=== PATIENT | female | born 1945 | race Caucasian/White ===

== ENCOUNTER 2020-10-03 12:34 | Inpatient (IN) | payer OTHER ==
[~2020-10-03] VITALS: Ht 157.5 cm; Wt 103.2 kg
--- NOTE | ~2020-10-03 | HC ---
[facility] [place] [place] [address] [place] [address] CONSULTATION Name: NEFTALI MAYER Room #: 349-I ADM IN ..#: [id number] Admission: 10/03/20 Attend Phys: Renée Salomon Discharge: Date of : 49 Report #: [id number] THIS REPORT FOR: cc: FAM - Family physician unknown FAM - Family physician unknown Jules Abraham MD ~ DATE OF SERVICE: 10/11/2020 HISTORY OF PRESENT ILLNESS: The patient is a 75-year-old female with obesity, diabetes mellitus type 2, hypertension, admitted with increasing shortness of breath 10 days after diagnosed with COVID. EMS noted Pulse oximetry in the 50s. Chest x-ray revealed bilateral pneumonia. She was diagnosed with COVID-19 pneumonia along with sepsis, ARDS, acute renal insufficiency, peripheral edema, moderate protein calorie malnutrition. She has been treated with IV antibiotics, given corticosteroids. She has been on Optiflow and I do not see that she warranted intubation and mechanical ventilation, but has continued on the Optiflow, currently on 45 liters per minute. She also has had BiPAP. She is currently in isolation for COVID and is in a negative pressure room. We are seeing her in rehabilitation medicine consultation. PAST MEDICAL HISTORY: Includes the obesity, hypertension, enteritis, diabetes mellitus type 2. MEDICATIONS: Please see the full medication listing. ALLERGIES: PENICILLIN. SOCIAL HISTORY: Lives in a town house alone. No stairs. Did not utilize gait aids. There is a daughter in the area, but the daughter is apparently going to [place] for the next couple of weeks with the patient's granddaughter for some type of dance activity. REVIEW OF SYSTEMS: No complaints of chest pain, currently short of breath with activity. No abdominal discomfort. PHYSICAL EXAMINATION: GENERAL: An obese 75-year-old female seen in the negative pressure room. She has full COVID precautions. Faces appeared symmetric. She is on the Optiflow functional range of motion of both upper extremities, strength is grade 4-/5. DTRs are trace to 1. Lower extremities, no focal calf swelling. She does have some distal lower extremity peripheral edema trace. She is probably 3+/5 strength of her lower extremities; sit to stand, standby assistance with gait, 50 feet min assist, no device. Continues on the high-flow oxygen. She is noted to be 5 feet 2 inches and weighs 170 pounds on admission. [address] [address] CONSULTATION Name: NEFTALI MAYER Room #: 349-I [facility] IN [facility]#: [id number] Admission: 10/03/20 Attend Phys: Renée Salomon Discharge: Date of : 49 Report #: [id number] ASSESSMENT: A 75-year-old white female with the following problems: 1. COVID-19 pneumonia. 2. Sepsis. 3. Acute respiratory distress syndrome. 4. Acute renal insufficiency. 5. Peripheral edema. 6. Moderate protein-calorie malnutrition. 7. Obesity. 8. Diabetes mellitus type 2. 9. Hypertension. 10. Enteritis. PLAN: Continuing on the Optiflow. She is tolerating basic therapies with PT and OT. We are being asked to assess regarding rehabilitation options. There is the possibility of patients undergoing inpatient rehabilitation on the COVID floor rather than transferring to the inpatient in-hospital rehabilitation don. This may certainly be a possibility for this patient to gradually improve her strength and endurance and continue with continuity of care for the multiple sap plant maintenance consultant physicians that are involved. The goals further goes to gradually improve her pulmonary condition while improving her overall functional independence with mobility and ADLs. Insurance precertification issues will be checked and we will be glad to follow along with you. By: [id number] Jules Abraham MD /nt
--- NOTE | ~2020-10-03 | EMS ---
[facility] [address] [place] [id number] EMS Patient Care Report Name: NEFTALI MAYER Room #: 356-P ADM IN M.R.#: [id number] Admission: 10/03/20 Attend Phys: Renée Salomon Discharge: Date of : 49 Report #: [id number] THIS REPORT FOR: //name// Report Transmitted: 10/05/2020 14:44 EMS Care Summary [place], [place]/[facility] Incident [id number] @ 10/03/2020 11:53 Incident Location [address] [place] [address] Patient NEFTALI MAYER Female, 75 Years 1945 Patient Address [address] [place] [address] Patient History Hypertension (HTN), Patient Allergies Penicillin allergy, Chief Complaint covid Disposition Transported No Lights/[place] [facility] Reason Breathing Problem Transported To [facility] Narrative pt found lying in bed c/o N/V and SOB. pt hands and fingers are "dusky" colored. she reports she tested positive 10 days ago. she has not been vaccinated. she has not gone to the Dr and has been feeling worse over the past few days. pt RA 02 sat is 51%. pt req eval at [facility]. pt placed on under a face mask. pt to stair chair and out to [facility], [place] as listed in flow chart. transport non emergency. pt 02 sat increased to 94%, no changes in pt [facility] [address] [place] [address] EMS Patient Care Report Name: NEFTALI MAYER Room #: 356-P [facility] IN ..#: [id number] Admission: 10/03/20 Attend Phys: Renée Salomon Discharge: Date of : 49 Report #: [id number] complaint. Initial Vitals @12:24P: 57,R: 20,BP: 133/69,SpO2: 94, @12:04R: 20,GCS: 15,SpO2: 51, @12:07P: 60,R: 20,BP: 134/79,Pain: 0/10,GCS: 15,Temp: 98F,SpO2: 60,Revised Trauma: 12, Assessments @12:03MENTAL:No Abnormalities,SKIN:Cold,HEENT:Head/Face: No Abnormalities,LUNG SOUNDS:General: Vomiting,General: Nausea,ABDOMEN:General: Vomiting,General: Nausea,PELVIS//GI:EXTREMITIES:PULSE:Radial: 2+ Normal,NEURO:Other,@12:24MENTAL:No Abnormalities,SKIN:Cold,HEENT:LUNG SOUNDS:ABDOMEN:PELVIS//GI:EXTREMITIES:PULSE:NEURO: Impression COVID-19 - Confirmed by testing Procedures @12:03ALS AssessmentResponse: UnchangedSucceeded@12:07Oxygen FlowRate: 6 Device: Nasal Cannula (NC) Response: ImprovedSucceeded@12:16Saline Lock 10cc (20 ga) Site: Hand-LeftResponse: UnchangedSucceeded@12:10StretcherResponse: Unchanged@12:08StairchairResponse: Unchanged@12:133-Lead ECGResponse: Unchanged Timeline 11:52,Call Received 11:52,Dispatch Notified 11:53,Dispatched 11:54,En Route 12:01,On Scene 12:03,At Patient 12:03,ALS Assessment,Response: UnchangedSucceeded, 12:04,BP: / M,PULSE: ,RR: 20 R,SPO2: 51 Ox,ETCO2: ,BG: ,PAIN: ,GCS: 15, 12:07,Oxygen FlowRate: 6 Device: Nasal Cannula (NC) Response: ImprovedSucceeded, 12:07,BP: 134/79 M,PULSE: 60,RR: 20 R,SPO2: 60 Ox,ETCO2: ,BG: ,PAIN: 0,GCS: 15, 12:08,Stairchair,Response: Unchanged 12:10,Stretcher,Response: Unchanged 12:13,3-Lead ECG,Response: Unchanged 12:16,Saline Lock 10cc 20 ga Site: Hand-Left,Response: UnchangedSucceeded, 12:19,Depart Scene 12:24,BP: 133/69 M,PULSE: 57,RR: 20 R,SPO2: 94 Ox,ETCO2: ,BG: ,PAIN: ,GCS: , 12:43,At Destination 12:54,Call Closed Disclaimer v1.1 Copyright 2020 [employer] [place] [address] EMS Patient Care Report Name: LEYLANEFTALI Room #: 356-P ADM IN M.R.#: [id number] Admission: 10/03/20 Attend Phys: Renée Salomon Discharge: Date of : 49 Report #: [id number] This EMS Care Summary contains data elements from the applicable legal record (which may be displayed differently). It is designed to provide pertinent information for the following purposes: continuity of care, clinical quality, and state data reporting. The complete legal record is available to ED staff and administrators of the receiving hospital in [facility]'s Patient Tracker. All data is provided "as is."
[2020-10-03 12:39] VITALS: BP 136/73
--- NOTE | 2020-10-03 12:55 | NUR ---
EVELIN MAYER (DAUGHTER) PHONE: [phone]
[2020-10-03] MEDS ORDERED: LISINOPRIL-HCT1 EAC1 PO (12:57)
[2020-10-03] MEDS ORDERED: CELEXA 20 MG TA20 MG PO (12:58)
[2020-10-03 13:24] LABS: BE(vivo) 1.6 mmol/L (-2 to +3); PCO2 35.5 mmHg (35.0-45.0); PO2 81.9 mmHg (80.0-100.0); pH 7.465 (7.360-7.450); sO2 96.7 % (92.0-98.0)
[2020-10-03 13:30] LABS: HEMATOCRIT 41.4 % (37.0-47.0); HEMOGLOBIN 14.2 gm/dL (12.0-15.0); MCH 30.2 pg (26.0-34.0); MCHC 34.2 g/dL (28.0-37.0); MCV 88.5 fL (80.0-100.0); PLATELET COUNT 263 thou/uL (150-400); RBC 4.68 mil/uL (4.20-5.00); RDW 13.6 % (10.5-14.5); WBC 7.8 thou/uL (4.0-11.0)
[2020-10-03 13:34] LABS: CALCIUM 8.1 mg/dL (8.5-10.1); CREATININE 1.9 mg/dL (0.6-1.0); POTASSIUM 3.3 mmol/L (3.5-5.1)
[2020-10-03 13:43] LABS: ALBUMIN 2.9 g/dL (3.4-5.0); TOTAL BILIRUBIN 0.7 mg/dL (0.2-1.0); TOTAL PROTEIN 6.9 g/dL (6.4-8.2); TROPONIN-I 0.06 ng/mL (<0.06)
[2020-10-03 14:13] VITALS: BP 116/57
[2020-10-03 15:00] VITALS: BP 109/61
[2020-10-03 16:01] VITALS: BP 141/69
[2020-10-03 17:42] LABS: ABSOLUTE NEUTROPHILS 6.9 thou/uL (1.4-8.2); ATYPICAL LYMPHS 1 %; METAMYELOCYTES 1 %
--- NOTE | 2020-10-03 19:29 | NUR ---
PT ADMITTED FROM ER FOR HYPOXIA AND PNEUMONIA DUE TO COVID VIRUS AT 1600PM, PT IS A&OX3 ( PERSON, PLACE AND TIME), PT'S VS ARE STABLE, ID HAS CONSULT, PT STARTS MEDICATIONS TO TREAT COVID, RN HAS REPORTED TO NEXT SHIFT , PT IS VERY WAEK AND SHE NEEDS TO HELP BSC. PT IS ON O2 6L/MIN/NC TO KEEP O2 92-94%,
[2020-10-03 19:41] VITALS: BP 129/69
[2020-10-04 03:49] VITALS: BP 138/62
--- NOTE | 2020-10-04 04:51 | NUR ---
PROGRESS PT A/O X4 , UP WITH SBA GAIT UNSTEADY PT REPORTS WEAKNESS. UP TO BSC VOIDING SMALL AMOUNTS AT A TIME. LUNGS DIMINISHED AND PT DENIES COUGH. PT ON 6 LITERS AT START OF SHIFT BUT COULDN'T KEEP O2 SATS UP rt INCREASED TO 13 LITERS O2 VIA HIGH FLOW CANNULA SATS AT 93 TO 98%. ORDER FOR OPTIFLOW PRN AND NON REBREATHER PLACED AT BEDSIDE TO USE WITH ACTIVITY. PT DENIES SOB AFTER O2 INCREASE. REPORTED GENERALIZED PAIN AND A HYDROCODONE GIVEN PT NAUSEOUS AFTER AND 4 MG ZOFRAN GIVEN WITH EFFECT. PT DENIED PAIN THE REMAINDER OF SHIFT.ACCUCHECKS CONTINUE 167 AT HS. CONTINUE POC.
[2020-10-04 06:01] LABS: HEMATOCRIT 40.9 % (37.0-47.0); HEMOGLOBIN 13.9 gm/dL (12.0-15.0); MCH 30.4 pg (26.0-34.0); MCV 89.5 fL (80.0-100.0); RBC 4.57 mil/uL (4.20-5.00); RDW 13.2 % (10.5-14.5); WBC 8.5 thou/uL (4.0-11.0)
[2020-10-04 06:09] LABS: ANION GAP 9 mmol/L (7-16); BUN 76 mg/dL (7-18); CALCIUM 8.9 mg/dL (8.5-10.1); CHLORIDE 102 mmol/L (98-107); CO2 32 mmol/L (21-32); CREATININE 1.8 mg/dL (0.6-1.0); GLUCOSE 139 mg/dL (74-106); POTASSIUM 3.7 mmol/L (3.5-5.1); SODIUM 143 mmol/L (136-145)
[2020-10-04 06:17] LABS: ALBUMIN 2.7 g/dL (3.4-5.0); PHOSPHORUS 2.4 mg/dL (2.6-4.7); TROPONIN-I <0.06 ng/mL (<0.06)
--- NOTE | 2020-10-04 07:50 | EKG ---
[facility] [employer] [place] [address] ELECTROCARDIOGRAM REPORT Name: NEFTALI MAYER Room #: 356- ADM IN M.R.#: [id number] Admission: 10/03/20 Attend Phys: Renée Salomon Discharge: Date of : 49 Report #: [id number] [facility] ED Test Date: 2020-10-03 Test Time: 12:57:47 Pat Name: NEFTALI MAYER Department: Room: 356 Gender: F Hematology Specialist: delbert : 1945 Requested By: Jules Puckett Order Number: [id number] MD: Cornelio Juarez Measurements Intervals [place] Rate: 59 P: -3 GA: 144 QRS: 38 QRSD: 118 T: 9 QT: 494 QTc: 490 Interpretive Statements Sinus rhythm Incomplete right bundle branch block Low voltage, precordial leads Baseline wander in lead(s) V4 No previous ECG available for comparison Electronically Signed On 10-04-2020 7:49:58 CDT by Cornelio Juarez [email or web address] <ELECTRONICALLY SIGNED> By: Cornelio Juarez MD, [facility] 10/04/20 0749 [id number] Cornelio Juarez MD, FACC /EPI
[2020-10-04 08:39] VITALS: BP 139/65
--- NOTE | 2020-10-04 10:04 | NUR ---
RN CALLED AND TALKED TO PT'S DAUGHTER EVELIN AND GAVE PT UPDATE. RN UPDATED INCREASED O2 NEED. DAUGHTER ASKED QUESTIONS ABOUT PT'S HOME MEDS FOR ANTIDEPRESSANT AND HTN. THOSE MEDS ARE ON PT'S HOME MED LIST BUT HAVE NOT YET BEEN RESTARTED. QUESTIONS ASKED AND ANSWERED.
[2020-10-04 11:03] LABS: URINE BILIRUBIN NEGATIVE (Negative); URINE BLOOD NEGATIVE (Negative); URINE CLARITY CLEAR; URINE COLOR YELLOW; URINE GLUCOSE-RANDOM* NEGATIVE (Negative); URINE KETONES NEGATIVE (Negative); URINE LEUKOCYTES-REFLEX NEGATIVE (Negative); URINE NITRITE-REFLEX NEGATIVE (Negative); URINE PROTEIN (DIPSTICK) NEGATIVE (Negative); URINE UROBILINOGEN 0.2 E.U./dl (0.2-1.0)
--- NOTE | 2020-10-04 16:15 | NUR ---
INITIAL ASSESSMENT: Received consult. SW reviewed chart and spoke with nursing and attending physician. Pt was admitted from home due to COVID pneumonia/hypoxia. Pt placed in Enhanced Isolation. Pt had tested positive for COVID about 10 days prior to admission. Pt is currently afebrile. Pt on 13L of O2 this morning and is now requiring optiflow. Pt is on IV abx, IV steroids and IV lasix. SW placed call to pt's room. No answer. Per chart, pt has been alert/orientated. Pt lives at home. Pt's dtr has been updated by nursing. SW to follow up with pt and/or family to obtain assessment info and discuss discharge planning.
[2020-10-04 16:41] VITALS: BP 155/81
--- NOTE | 2020-10-04 19:11 | NUR ---
PT AT BEGINNING OF SHIFT WAS ON 13L HIGH FLOW NC AND RT INCREASED HIM TO 15L HIGH FLOW NC. WHEN RN WAS DOING ASSESSMENT PT'S O2 SAT WAS 88%. RT WAS NOTIFIED AND PT WAS SWITCHED FROM HIGH FLOW NC TO OPTIFLOW AT 80% FIO2, 50L. PT HAS REMAINED >92% THE REMAINDER OF THIS SHIFT. PT DID NOT HAVE APPETITE FOR BREAKFAST OR LUNCH BUT DID EAT SOME PEARS FOR DINNER AND STATED THAT IS THE FIRST TIME IN SEVERAL DAYS THAT SHE WAS NOT NAUSEATED WHEN EATING. PT C/O HEADACHE AND NECK PAIN AND WAS GIVEN PO PAIN MEDICATIONS WITH COMPLETE RELIEF.
[2020-10-05 03:38] VITALS: BP 152/84
--- NOTE | 2020-10-05 07:28 | HC ---
[facility] [address] [place] [address] CONSULTATION Name: NEFTALI MAYER Room #: 356-P [facility] IN ..#: [id number] Admission: 10/03/20 Attend Phys: Renée Salomon Discharge: Date of : 49 Report #: [id number] THIS REPORT FOR: cc: FAM - Family physician unknown FAM - Family physician unknown Jose Menendez MD ~ DATE OF SERVICE: 10/03/2020 INFECTIOUS DISEASE CONSULTATION ATTENDING PHYSICIAN: Dr. Salomon. REASON FOR CONSULTATION: COVID pneumonitis, complicated by respiratory failure. HISTORY OF PRESENT ILLNESS: Chart reviewed and the patient examined. A 75-year-old with history of hypertension and depression, who was admitted through Emergency Room with complaints of progressive illness. She has been ill for roughly 10 days. She is aware of exposure history, perhaps 2 weeks ago developed fevers some of which high-grade initially, associated muscle aches and joint pains, did have GI-related complaints with diarrhea, nausea, over the course of last few days has progressive dyspnea, really persistent cough, more typically intermittent. On evaluation was found to be hypoxemic, requiring supplemental oxygen 6 L per nasal cannula, baseline saturations in the mid to low 90s and a borderline elevated lactic acid of 2.1. Chest x-ray with bilateral infiltrates consistent with multifocal pneumonitis. Empirically started on levofloxacin, corticosteroids. ALLERGIES: PENICILLIN, she describes as a young child, does not remember details. CURRENT MEDICATIONS: Include levofloxacin, dexamethasone, furosemide, apixaban, insulin, hydrocodone, zolpidem, ondansetron as needed. PAST MEDICAL HISTORY: Hypertension, depression. SOCIAL HISTORY: Nonsmoker. No ethanol. No illicit drug use. FAMILY HISTORY: Noncontributory. REVIEW OF SYSTEMS: Otherwise, unremarkable 10-point review of systems. PHYSICAL EXAMINATION: GENERAL: She is in moderate distress. She is generally lucid, somewhat chronically ill appearing. VITAL SIGNS: Temperature 98.5, pulse 56, respirations 18, blood pressure 141/69. [facility] [address] [place] [address] CONSULTATION Name: NEFTALI MAYER Room #: [address] [place] [address] [place] ..#: [id number] Admission: 10/03/20 Attend Phys: Renée Salomon Discharge: Date of : 49 Report #: [id number] SKIN: Warm, dry. HEENT: Normocephalic. Extraocular muscles intact. NECK: Supple. LUNGS: Scattered coarse breath sounds. HEART: Regular, borderline bradycardic. I do not appreciate a murmur. ABDOMEN: Mildly distended, otherwise soft, nontender. EXTREMITIES: No cyanosis. GENITOURINARY AND RECTAL: Deferred. LABORATORY DATA: Glucose initially 144, repeat 167. ProBNP of 596. Electrolytes: Sodium 143, potassium 3.3, chloride 101, bicarbonate 20, anion gap of 14. BUN and creatinine 76 and 1.9. Estimated GFR of 26. Albumin 2.9, total protein 6.9. LFTs only remarkable for AST of 67. Coronavirus testing positive. CBC: White count of 7.8, H and H 14.2 and 41.4, platelets of 263. ABGs: pH 7.465, pCO2 of 35.5, pO2 of 81.9 on 6 L. Chest x-ray as described above. ASSESSMENT: 1. COVID-19 infection, complicated by pneumonitis and respiratory failure, perhaps with acute respiratory distress syndrome. 2. Hypertension. 3. Depression. PLAN: We will plan on continuing empiric therapy with antibacterial far enough that may well have secondary bacterial pneumonitis. Given her marginal renal functions and the 10-day history, we will hold off on remdesivir at this point. Continue corticosteroids and vitamins, try monoclonal antibody IL6. She remains quite tenuous at this point. Continue oxygen therapy as required, wean off as able. I would be concerned about clinical deterioration of this patient. <ELECTRONICALLY SIGNED> By: Jose Menendez MD 10/05/20 0728 [id number] [id number] Jose Menendez MD /nt
[2020-10-05 07:48] VITALS: BP 139/87
[2020-10-05 11:36] LABS: CREATININE 1.5 mg/dL (0.6-1.0); POTASSIUM 3.7 mmol/L (3.5-5.1)
--- NOTE | 2020-10-05 14:23 | NUR ---
TITO reviewed chart and spoke with nursing and attending physician. Pt remains in Enhanced Isolation due to COVID. Pt is afebrile and requiring optiflow. Pt is on IV abx, IV steroids and IV lasix. Pt started course of Remdesivir today. TITO placed call to pt's room. No answer. Pt able to talk by phone. TITO will continue to attempt to contact pt to obtain info for assessment and discharge planning. TITO is following to assist as needed with discharge planning.
[2020-10-05 15:51] VITALS: BP 152/79
[2020-10-05 19:32] VITALS: BP 147/84
[2020-10-06 00:23] VITALS: BP 143/89
[2020-10-06 04:55] VITALS: BP 131/63
--- NOTE | 2020-10-06 05:14 | NUR ---
PROGRESS PT A/O X4. UP WITH CONTACT GUARD ASSIST PT WEAK AND UNSTEADY. REPORTS HEADACHE AT A RATE OF 3 TO 5 TOOK HYDROCODONE WITH EFFECT. LUNGS DIMINISHED AND PT BREATHING SHALLOW. USING ISP UP TO 750 TO 800 ML'S INDEPENDENTLY. VOIDING SMALL AMOUNTS OF CLEAR YELLOW FOUL SMELLING URINE AT A TIME. TELEMETRY READING SR/SA WITH A RBBB. CONTINUE TO MONITOR.
[2020-10-06 06:09] LABS: ALBUMIN 2.7 g/dL (3.4-5.0); CALCIUM 8.8 mg/dL (8.5-10.1); CREATININE 1.1 mg/dL (0.6-1.0); DIRECT BILIRUBIN 0.2 mg/dL (<0.1-0.2); PHOSPHORUS 2.1 mg/dL (2.5-4.9); POTASSIUM 3.2 mmol/L (3.5-5.1); TOTAL BILIRUBIN 0.7 mg/dL (0.2-1.0); TOTAL PROTEIN 6.3 g/dL (6.4-8.2)
[2020-10-06 08:17] VITALS: BP 154/86
--- NOTE | 2020-10-06 15:07 | NUR ---
TITO reviewed chart and spoke with nursing and attending physician. Pt remains in Enhanced Isolation due to COVID. Pt with low grade fever today. Pt is requiring optiflow. Pt is on IV abx, IV steroids, IV lasix and completing course of Remdesivir. TITO placed call to pt's room. No answer. TITO left voice message on pt's cell phone to request call back to discuss discharge planning. TITO is following to assist as needed with discharge planning.
[2020-10-06 16:52] VITALS: BP 132/78
--- NOTE | 2020-10-06 18:43 | NUR ---
PT DAUGHTER UPDATED BY THIS RN DURING AFTERNOON. PT CONTINUES TO HAVE LOW ENERGY, POOR APPETITE. IS COMPLIANT WITH OPTIFLOW AND CALLING FOR STANDY BY ASSIST
[2020-10-06 20:05] VITALS: BP 150/88
--- NOTE | 2020-10-07 00:49 | NUR ---
ASSUMED CARE OF PATIENT AT 1900. REMAINS ON OPTIFLOW. STATES SHE IS GETTING MORE AND MORE TIRED. ENCOURAGED HER TO REST, CALL FOR ANY ASSISTANCE. NOT PROGRESSING TOWARDS POC GOALS AT THIS TIME.
[2020-10-07 03:27] LABS: HEMATOCRIT 40.2 % (37.0-47.0); HEMOGLOBIN 13.8 gm/dL (12.0-15.0); MCH 30.4 pg (26.0-34.0); MCHC 34.3 g/dL (28.0-37.0); MCV 88.7 fL (80.0-100.0); PLATELET COUNT 245 thou/uL (150-400); RBC 4.53 mil/uL (4.20-5.00); RDW 13.4 % (10.5-14.5); WBC 10.9 thou/uL (4.0-11.0)
[2020-10-07 03:47] LABS: ALBUMIN 2.8 g/dL (3.4-5.0); CALCIUM 8.6 mg/dL (8.5-10.1); DIRECT BILIRUBIN 0.3 mg/dL (<0.1-0.2); PHOSPHORUS 2.5 mg/dL (2.5-4.9); TOTAL BILIRUBIN 0.7 mg/dL (0.2-1.0); TOTAL PROTEIN 6.1 g/dL (6.4-8.2)
[2020-10-07 03:50] VITALS: BP 139/80
[2020-10-07 06:48] LABS: PLATELET ESTIMATE NORMAL
[2020-10-07 08:01] VITALS: BP 115/69
[2020-10-07 09:31] LABS: BE(vivo) 4.2 mmol/L (-2 to +3); HCO3 28.7 mmol/L (22.0-26.0); PCO2 42.4 mmHg (35.0-45.0); PO2 87.3 mmHg (80.0-100.0); pH 7.448 (7.360-7.450)
[2020-10-07 14:58] VITALS: BP 129/78
--- NOTE | 2020-10-07 15:01 | NUR ---
TITO reviewed chart and spoke with nursing and attending physician. Pt remains in Enhanced Isolation due to COVID. Pt is afebrile and requiring optiflow. Pt remains on IV meds and Remdesivir. PT/OT ordered today to evaluate pt for discharge needs. TITO placed call to pt's room. No answer. TITO is following to assist as needed with discharge planning.
--- NOTE | 2020-10-07 17:21 | NUR ---
NO ACUTE CHANGES WITH ASSESSMENTS THIS SHIFT. RT TITRATING O2 DOWN TOLERATED. PATIENT WORK WITH PT AND OT THIS SHIFT, TOLERATED WELL. PT VOIDED PER BSC.
[2020-10-07 20:13] VITALS: BP 124/68
--- NOTE | 2020-10-07 22:21 | NUR ---
PT RESTING IN BED. OPTI FLOW 45L, 63%. PT HAS SAD AFFECT, WHINY SPEECH, ASKING FOR CONFIRATION THAT SHE IS OK. SITTING IN THE DARK. FLUSHED SKIN TONE. LUNGS DIMINISHED. BLE EDEMA. PT STEADY WITH TRANSFERS, USING BSC, HAD ONE TIME DOSE LASIX THIS EVENING. PT BEING MOVED TO NEGATIVE PRESSURE ROOM PER PULMONARY DR REQUEST FOR AEROSOL TREATMENTS. PT ASKS FOR FLUIDS OFTEN. PT TALKED ABOUT HER DAUGHTER GOING TO [facility].
[2020-10-08 04:00] VITALS: BP 120/66
[2020-10-08 06:01] LABS: ALBUMIN 2.9 g/dL (3.4-5.0); CALCIUM 8.8 mg/dL (8.5-10.1); DIRECT BILIRUBIN 0.3 mg/dL (<0.1-0.2); PHOSPHORUS 2.9 mg/dL (2.5-4.9); POTASSIUM 3.9 mmol/L (3.5-5.1); TOTAL BILIRUBIN 0.8 mg/dL (0.2-1.0); TOTAL PROTEIN 6.1 g/dL (6.4-8.2)
[2020-10-08 07:55] VITALS: BP 135/69
[2020-10-08 11:38] VITALS: BP 134/64
--- NOTE | 2020-10-08 14:52 | NUR ---
TITO reviewed chart and spoke with nursing and attending physician. Pt remains in Enhanced Isolation due to COVID. Pt was moved to the negative pressure room. Pt is afebrile and requiring optiflow. Pt is on IV meds and Remdesivir. Therapy has been able to work with pt. Recommendation made for pt to be evaluated for acute rehab. Pt was independent prior to admission. No weekend discharge planned. TITO placed several calls to pt's room. No answer. TITO will follow up with pt or family on Sunday. TITO is following to assist as needed with discharge planning.
[2020-10-08 16:35] VITALS: BP 135/78
[2020-10-08 19:46] VITALS: BP 130/67
--- NOTE | 2020-10-08 21:42 | NUR ---
PT RESTING IN BED. O2 OPTI MAURICE. PT REPORTS FEELING TIRED. PT USING BSC. SAD AFFECT. SITTING IN THE DARK. PT REDIRECTED TO DRINK WATER AND NOT MORE JUICE OR FRUIT, PT IS DIABETIC. STEADY GAIT. FLUSHED SKIN. LUNGS COARSE.
[2020-10-09 02:39] VITALS: BP 142/74
[2020-10-09 05:59] LABS: ALBUMIN 2.7 g/dL (3.4-5.0); CALCIUM 8.5 mg/dL (8.5-10.1); CREATININE 0.8 mg/dL (0.6-1.0); DIRECT BILIRUBIN 0.2 mg/dL (<0.1-0.2); PHOSPHORUS 2.8 mg/dL (2.5-4.9); POTASSIUM 4.3 mmol/L (3.5-5.1); TOTAL BILIRUBIN 0.9 mg/dL (0.2-1.0); TOTAL PROTEIN 5.6 g/dL (6.4-8.2)
[2020-10-09 07:18] VITALS: BP 142/71
--- NOTE | 2020-10-09 13:07 | NUR ---
CARE ASSUMED THIS AM, PT ALERT AND ORIENTED X4, DENIES CHEST PAIN, NAUSEA AND VOMITTING. CONTINUE TO BE ON OPTI FLOW 45L, SOB WITH EXERTION. UP TO BSC. SLOWLY PROGRESSING TOWARDS CARE. DENIES ANY NEEDS MARTINEZ. WILL CONTINUE TO MONITOR
[2020-10-09 15:06] VITALS: BP 136/68
[2020-10-09 21:33] VITALS: BP 133/71
[2020-10-10 05:01] VITALS: BP 128/65
--- NOTE | 2020-10-10 06:36 | NUR ---
PT UP TO BSC WITH X1 ASSIST. PT STILL DESATS QUICKLY WHEN NASAL CANNULA OUT, TIGHTENED UP HEAD STRAP SEEMS TO KEEP IT IN THERE BETTER. FOLLOW POC WITH IVPB ANTIBIOTICS. CALL LIGHT WITHIN REACH.
[2020-10-10 08:10] VITALS: BP 131/76
--- NOTE | 2020-10-10 12:48 | NUR ---
CARE ASSUMED THIS AM, LERT AND ORIENTED X4, DENIES CHEST PAIN, NAUSEA AND VOMITTING. CONTINUE TO BE ON OPTIFLO, 45-40L, SOB WITH EXERTION. PT STATED FEELING BETTER. UP TO BSC INDEPENDENTLY. PT DAUGHTER CALLED AND UPDATED ABOUT PT CARE. PT MOSTLY SITS UP IN BED. PT ENCIURAGED TO USED IS DURING THE DAY. DENIES ANY NEEDS MARTINEZ, CONTINUE TO MONITOR
[2020-10-10 16:34] VITALS: BP 122/69
--- NOTE | 2020-10-10 16:35 | NUR ---
ASSUMED CARE OF PATIENT AT 0600. AT THIS TIME SHE WAS ON 50LPM AND 65% FIO2. DURING THE COURSE OF THE DAY I WAS ABLE TO WEAN THE PATIENT DOWN TO 40LPM AND 55% FIO2. HER SATURATION WAS 95% ON THESE SETTINGS.
[2020-10-10 19:30] VITALS: BP 129/70
[2020-10-11 03:45] VITALS: BP 124/63
--- NOTE | 2020-10-11 06:27 | NUR ---
VSS OVERNIGHT. FOLLOWING POC WITH IV ANTIBIOTICS. PT ASKED FOR TYLENOL AT 0400 FOR A HEADACHE. ISOLATION PRECAUTIONS IN PLACE.
[2020-10-11 07:06] LABS: ALBUMIN 2.6 g/dL (3.4-5.0); CALCIUM 8.4 mg/dL (8.5-10.1); CREATININE 0.9 mg/dL (0.6-1.0); DIRECT BILIRUBIN 0.3 mg/dL (<0.1-0.2); PHOSPHORUS 3.3 mg/dL (2.6-4.7); POTASSIUM 4.2 mmol/L (3.5-5.1); TOTAL BILIRUBIN 0.9 mg/dL (0.2-1.0); TOTAL PROTEIN 5.1 g/dL (6.4-8.2)
[2020-10-11 07:20] VITALS: BP 136/70
[2020-10-11 08:56] LABS: BASOPHILS 0.2 % (0.0-2.0); MCH 30.6 pg (26.0-34.0)
[2020-10-11 08:58] LABS: ABSOLUTE NEUTROPHILS 10.6 thou/uL (1.4-8.2); EOSINOPHILS 0.8 % (0.0-3.0); HEMATOCRIT 39.4 % (37.0-47.0); HEMOGLOBIN 13.5 gm/dL (12.0-15.0); LYMPHOCYTES 7.7 % (24.0-44.0); MCHC 34.1 g/dL (28.0-37.0); MCV 89.7 fL (80.0-100.0); PLATELET COUNT 197 thou/uL (150-400); POLYS 85.3 % (36.0-66.0); RBC 4.39 mil/uL (4.20-5.00); RDW 13.2 % (10.5-14.5); WBC 12.4 thou/uL (4.0-11.0)
--- NOTE | 2020-10-11 09:17 | NUR ---
Nutrition: pt admitted with COVID+ status, on Optiflo. Attempted phone call to pt room with no answer. Admit weight 179#, current 232#, suspect error. On vitamin pack, lasmuna, SSI. Hx DM. BG 115-213 on regular diet. Will add carb controlled to diet order. Currently eating 50-75% of meals, fair. Place as low nutrition risk.
[2020-10-11 15:19] VITALS: BP 139/72
--- NOTE | 2020-10-11 15:48 | NUR ---
TITO reviewed chart and spoke with nursing and attending physician. Pt remains in Enhanced Isolation due to COVID. Pt is afebrile and requiring optiflow. Pt is on IV meds and Remdesivir. Therapy is working with pt. [facility] consult ordered to evaluate pt for admission to in acute rehab. Will need insurance auth. TITO placed call to pt's room. No answer. TITO asked nursing to call SW when in pt's room, in order to discuss discharge plan. TITO is following to assist as needed with discharge planning.
--- NOTE | 2020-10-11 18:10 | NUR ---
assumed care of pt at 0700. pt aox4 no acute distress. remains on optiflow @ 40L. doing well with therapies. calls out appropriately. diuresing well. isolation precautions in place. rehab physician consulted. nisha.
[2020-10-11 20:30] VITALS: BP 144/84
[2020-10-12 05:19] VITALS: BP 139/88
[2020-10-12 07:07] VITALS: BP 121/67
--- NOTE | 2020-10-12 07:20 | NUR ---
PT MAKING SLOW PROGRESS TOWARD GOAL. ON OPTIFLO WITH 40 LITERS AT 60% FI02. LUNGS DIMISHED THROUGHOUT. OCCASIONAL HARSH COUGH WITHOUT ANY SPUTUM PRODUCED.
[2020-10-12 07:40] LABS: HEMATOCRIT 39.1 % (37.0-47.0); HEMOGLOBIN 13.4 gm/dL (12.0-15.0); MCH 30.9 pg (26.0-34.0); MCHC 34.3 g/dL (28.0-37.0); MCV 89.9 fL (80.0-100.0); RBC 4.35 mil/uL (4.20-5.00); RDW 13.4 % (10.5-14.5); WBC 12.8 thou/uL (4.0-11.0)
[2020-10-12 08:03] LABS: ALBUMIN 2.6 g/dL (3.4-5.0); CALCIUM 8.3 mg/dL (8.5-10.1); CREATININE 0.8 mg/dL (0.6-1.0); DIRECT BILIRUBIN 0.3 mg/dL (<0.1-0.2); PHOSPHORUS 2.7 mg/dL (2.5-4.9); TOTAL BILIRUBIN 1.1 mg/dL (0.2-1.0); TOTAL PROTEIN 5.4 g/dL (6.4-8.2)
--- NOTE | 2020-10-12 10:49 | NUR ---
CARE ASSUMED THIS AM, PT ALERT AND ORIENTED X4, DENIES ANY CHEST PAIN, NAUSEA AND VOMITTING. CONTINUE TO BE ON OPTIFLOW, 40L. UP TO BSC. PT COMPLAINED OF HEADACHE, PT STATED SHE FELL AND HIT HER HEAD 2 WEEKS AGO BEFORE GETTING ADMITTED. WILL UPDATE DR. ROONEY ON THAT INFO. DNEIES ANY NEEDS MARTINEZ. WILL CONTINUE TO MONITOR.
--- NOTE | 2020-10-12 12:15 | NUR ---
PATIENT SEEN BY AND PATIENT IS A CANDIDATE FOR ACUTE REHAB. AUTHORIZATION NEEDED FROM INSURANCE FOR ACUTE REHAB STAY. [employer] CONTACTED THIS DATE AND AUTHORIZATION REQUESTED. IF AUTHORIZATION RECEIVED, PATIENT WILL ADMIT TO REHAB SERVICES, BUT WILL REMAIN ON 3W UNTIL NO LONGER CONTAGIOUS.
[2020-10-12 15:03] VITALS: BP 122/61
--- NOTE | 2020-10-12 16:13 | NUR ---
TITO reviewed chart and spoke with nursing and attending physician. Pt remains in Enhanced Isolation due to COVID. Pt is afebrile and requiring optiflow. Pt is on IV abx, IV steroids and IV Lasix. Pt is completing course of Remdesivir. [facility] is able to accept pt pending insurance authorization. Auth submitted today. TITO placed call to pt's room. No answer. TITO spoke with pt's dtr, Saira, via phone to provide update and discuss rehab prior to returning home. Saira is agreeable with plan and asks TITO to call her back at a later time. TITO will follow up with Saira and discuss discharge planning.
[2020-10-12 19:57] VITALS: BP 142/75
--- NOTE | 2020-10-13 03:33 | NUR ---
continues on the optiflo at 50% fio2. she has been able to rest tonight. she was very tired at shift change. she complained of some puritic areas on her buttock and rt arm. applied some lotion and this alleviated the discomfort. up to bsc with steady gait. no discharge needs voiced.
[2020-10-13 05:58] VITALS: BP 103/71
[2020-10-13 07:12] VITALS: BP 122/65
[2020-10-13 07:15] LABS: ALBUMIN 2.7 g/dL (3.4-5.0); CALCIUM 8.5 mg/dL (8.5-10.1); CREATININE 0.8 mg/dL (0.6-1.0); DIRECT BILIRUBIN 0.3 mg/dL (<0.1-0.2); PHOSPHORUS 2.9 mg/dL (2.6-4.7); POTASSIUM 4.3 mmol/L (3.5-5.1); TOTAL PROTEIN 5.4 g/dL (6.4-8.2)
--- NOTE | 2020-10-13 09:06 | NUR ---
CALL RECEIVED FROM PATIENT'S INSURANCE, [facility], ON 10/13/20 AFTER 4:30 PM. AUTHORIZATION FOR ACUTE REHAB STAY HAS BEEN DENIED. REASON FOR DENIAL IS THAT PATIENT IS NOT MEDICALLY READY FOR ACUTE REHAB AND NEEDS TO STAY IN ACUTE HOSPITAL. PEER TO PEER OFFERED AND MUST BE COMPLETED BY OCTOBER 18. PEER TO PEER NUMBER . A RECONSIDERATION CAN BE REQUESTED PRIOR TO OCTOBER 18, BUT IF THIS IS REQUESTED, IT WILL VOID OPPORTUNITY FOR PEER TO PEER. AFTER OCTOBER 18 NEW AUTHORIZATION REQUEST CAN BE MADE. ACUTE REHAB WILL CONTINUE TO FOLLOW.
--- NOTE | 2020-10-13 13:20 | NUR ---
Assumed care of pt this am. Pt A&O x4. Still on Optiflow 40L, 50% FiO2. Receiving Cefepime and Remdesevir. Denies any chest pain. Pt napping throughout the day. Fall precautions in place. Enchanced precautions in place. Will continue to monitor.
[2020-10-13 15:14] VITALS: BP 119/71
--- NOTE | 2020-10-13 16:10 | NUR ---
ITTO reviewed chart and spoke with nursing and attending physician. Pt remains in Enhanced Isolation due to COVID. Pt is afebrile and requiring optiflow. PT is on IV abx, IV steroids and IV lasix. Pt on Remdesivir. Discussed case with [facility] liaison. Insurance denied admission to in acute rehab due to current medical status. Per insurance, pt is not stable for acute rehab at this time. Option for peer to peer provided. Discussed with attending physician. Pt's O2 requirements need to be at 10L or less prior for [facility] to be able to accept pt. Insurance auth will be needed as well. TITO placed call to pt's room. No answer. TITO spoke with pt's dtr, Saira, to provide update. Saira verbalized understanding and is agreeable with plan for pt to have rehab prior to returning home. TITO is following to assist as needed with discharge planning.
[2020-10-13 19:30] VITALS: BP 144/70
[2020-10-14 03:45] VITALS: BP 123/60
[2020-10-14 07:10] VITALS: BP 123/92
--- NOTE | 2020-10-14 07:15 | NUR ---
PT WAS TITRATED DOWN OFF OPTIFLOW TO 8L VIA NASAL CANULA. 02 SATURATION WAS AT 97% OVERNIGHT. GAVE X1 PAIN MEDICATION. PT UP TO BSC WITH SBA. PT STATES SHE IS FEELING BETTER NOW. ISOLATION PRECAUTIONS IN PLACE.
[2020-10-14 15:10] VITALS: BP 141/82
--- NOTE | 2020-10-14 15:54 | NUR ---
TITO reviewed chart and spoke with nursing and attending physician. Pt remains in Enhanced Isolation due to COVID. Pt is afebrile and on 8L of O2. Pt remains on IV meds. TITO discussed case with [facility] vocational rehabilitation specialist, who states pt appears to be too high level for admission to inpt acute rehab. Recommendation made for pt to consider Home with HH. TITO placed call to pt's room. No answer. Will discuss Home with HH v. SNF placement. Some SNFs will accept pt's 10 days post COVID positive test date. TITO is following to assist as needed with discharge planning.
--- NOTE | 2020-10-14 17:26 | NUR ---
assumed care of pt at 0700. pt aox4 no acute distress. doing well on 8L NC. independent to BSC. diuresing well. ivf infusing per order. good appetite. calls appropriately. no events on telemetry. isolation precautions in place.
[2020-10-14 19:28] VITALS: BP 136/71
[2020-10-15 03:21] VITALS: BP 124/74
--- NOTE | 2020-10-15 06:03 | NUR ---
PT REQUESTING PO PAIN MEDICATION X2 FOR NECK PAINS. VSS OVERNIGHT. PT UP TO BSC NEEDED. ONLY REQUEST FROM PT IS ICE CHIPS. HOURLY ROUNDING AND ISOLATION PRECAUTIONS IN PLACE.
[2020-10-15 07:43] VITALS: BP 138/80
--- NOTE | 2020-10-15 15:20 | NUR ---
TITO reviewed chart and spoke with nursing and attending physician. Pt remains in Enhanced Isolation due to COVID. Pt is afebrile and on 2L of O2. Pt is on IV steroids and IV lasix. TITO asked pt's nurse to place phone near pt, as multiple attempts to contact pt have been unsuccessful. TITO spoke with pt via phone to discuss SNF placement v. Home with HH. Pt states she lives at home alone and does not feel that she is able to be at home by herself yet. TITO discussed SNF placement. Pt is agreeable. TITO faxed in-network SNF list to [facility] for nursing to provide to pt for review. No weekend discharge planned. Will need insurance authorization for SNF. TITO encouraged pt to have a couple of SNF options on Sunday morning. Pt verbalized understanding. TITO updated attending physician. TITO is following to assist as needed with discharge planning.
[2020-10-15 16:10] VITALS: BP 130/74
--- NOTE | 2020-10-15 16:56 | NUR ---
PATIENT OFF OF O2 FOR 4 HOURS THIS SHIFT, O2 SAT ABOVE 90 FOR THIS TIME PER RT. WHILE PATIENT WAS RESTING O2 SUSTAINED LESS THAN 90. RT PLACED PATIENT BACK ON 1L NC. WOOD [employer] NECK WHIPPER DISCUSSING POC AND DC GOALS WITH PATIENT, SNF LIST GIVEN TO PATIENT.
[2020-10-15 20:00] VITALS: BP 136/80
[2020-10-15 20:24] VITALS: BP 136/80
[2020-10-16 05:03] VITALS: BP 128/70
--- NOTE | 2020-10-16 06:03 | NUR ---
PROGRESS PT A/O X4 UP AD GAVIN TO BSC. LUNGS CLEAR BUT DIMINISHED O2 TITRATED TO ROOM AIR BUT SATS DOWN TO 88% ON ROOM AIR SO 1 LITER O2 VIA NC APPLIED O2 SATS AT 93 TO 95%. PT REPORTS HEADACHE/ NECK PAIN TOOK TYLENOL WITH SOME EFFECT. ICE PACK PROVIDED FOR COMFORT PT. ACCUCHECK WNL NO SSI REQUIRED. PLAN IS FOR PT TO DISCHARGE HOME WITH OR PLACEMENT IN SKILLED WHEN MEDICALLY STABLE.
[2020-10-16 07:15] VITALS: BP 127/59
--- NOTE | 2020-10-16 18:35 | NUR ---
PT TITRATED OFF OXYGEN, THEN PLACED BACK ON ON 1L LATE AFTERNOON. BLOOD SUGARS AVERAGING AROUND 230'S. PT UP TO BSC. LASIX GIVEN WITH LARGE AMOUNTS OF URINE PRODUCED. CALL LIGHT WITHIN REACH.
[2020-10-16 19:20] VITALS: BP 141/67
[2020-10-17 03:45] VITALS: BP 119/61
[2020-10-17 07:08] VITALS: BP 84/54
--- NOTE | 2020-10-17 07:17 | NUR ---
Pt. had profuse nose bleeding last night on both nostrils. Kept pressure for a long time and used ice pack before bleeding stopped. TRANS ROUTER notified and order received. Eliquis held last night per order. Afrin spray also given. No further bleeding since. Cont. on enhanced precaution,afbrile. O2 at 1L/NC at shift change then RT changed to a face mask due to nose bleed. She requested for her pain med and sleep med which were given to her. She slept well after that. Voided per commode and had bm.
[2020-10-17 08:31] VITALS: BP 127/62
[2020-10-17 14:58] LABS: HEMOGLOBIN 14.1 gm/dL (12.0-15.0); MCH 30.7 pg (26.0-34.0); MCHC 33.7 g/dL (28.0-37.0); MCV 91.2 fL (80.0-100.0); RBC 4.6 mil/uL (4.20-5.00); RDW 14.3 % (10.5-14.5); WBC 11.6 thou/uL (4.0-11.0)
[2020-10-17 15:13] VITALS: BP 129/78
[2020-10-17 15:18] LABS: CALCIUM 9.4 mg/dL (8.5-10.1); CREATININE 0.9 mg/dL (0.6-1.0); MAGNESIUM 1.9 mg/dL (1.8-2.4); POTASSIUM 5.1 mmol/L (3.5-5.1)
--- NOTE | 2020-10-17 16:15 | NUR ---
ASSUMED PATIENT CARE AT 0700. A/O X4. NO BLEEDING NOTED TODAY. GENERLIZED WEAKNESS. VSS. SLOWLY TOWARDS POC GOALS.
[2020-10-17 19:14] VITALS: BP 134/75
[2020-10-18 03:18] VITALS: BP 127/79
--- NOTE | 2020-10-18 04:45 | NUR ---
Requested tylenol and sleep med at HS with good results. She stated she slept well during the night. Maintaining O2 sat in the mid to upper 90's on 1L/NC. No further nose bleed this shift. Cont. on enhanced precaution , afebrile. Making some progress towards care plan goals.
[2020-10-18 07:13] VITALS: BP 132/75
--- NOTE | 2020-10-18 09:09 | NUR ---
Nutrition: Follow up on pt in isolation for COVID+ PNA. Unable to reach pt by phone this am. Wt hx questionable; last three wt's around 230 lb; prior three wt's around 170 lb. Most recent intake about 50% avg; intake last week 75-100% avg. B-242. Lasix, vit C, zinc, cholecalciferol, thiamine, insulin. BUN 36, albumin 2.7. Will add Glucerna daily. Assess at mild nutrition risk.
--- NOTE | 2020-10-18 13:42 | NUR ---
TITO reviewed chart and spoke with nursing and attending physician. Pt remains in Enhanced Isolation due to COVID. Pt is afebrile and on 1L of O2. Pt is progressing towards goals for discharge. TITO placed call to pt's room. No answer. TITO discussed with pt's nurse the need for a SNF option, in order to start referral process and insurance auth. Nursing spoke with pt, who requests referral to be sent to [facility]. ITTO contacted Ivy in admissions at [facility] regarding new referral. Pt would need a negative COVID test in order for [facility] to consider pt for admission. TITO discussed with nursing and attending physician. COVID test completed and test is negative. TITO faxed referral to [facility] for review. Notified asset management coordinator of referral. Will need insurance auth for post-acute placement. TITO placed call to pt's room. No answer. TITO updated pt's nurse, who will update pt. TITO is following to assist as needed with discharge planning.
[2020-10-18 15:15] VITALS: BP 121/63
[2020-10-18 19:33] VITALS: BP 136/66
[2020-10-19 04:00] VITALS: BP 125/70
--- NOTE | 2020-10-19 04:47 | NUR ---
Sleep med given early per pt. request. Tylenol given for neck/head ache with some relief. Slept well during the night. O2 at 1L/NC , no respiratory distress. She has been afebrile. Up to void per commode and also had bm this am. Denies any concern at this time. Progressing towards discharge goals.
[2020-10-19 07:34] VITALS: BP 146/81
--- NOTE | 2020-10-19 11:13 | NUR ---
TITO reviewed chart and spoke with nursing and attending physician. Pt remains in Enhanced Isolation due to COVID. Pt is afebrile and on 2L of O2. Pt faxed updated clinical and therapy notes to [facility] for review. Will need insurance auth for SNF. SW left voice message for Ivy in admissions. Pt is medically stable for discharge. Chart copy requested. TITO placed call to pt's room. No answer. TITO is following to assist as needed with discharge planning.
[2020-10-19 16:43] VITALS: BP 148/93
--- NOTE | 2020-10-19 18:04 | NUR ---
ASSUMED PATIENT CARE AT 0700. ON RA. DESAT WITH EXERTION. VSS, SLOLWY TOWARDS POC GOALS.
[2020-10-19 19:15] VITALS: BP 124/64
[2020-10-20 03:17] VITALS: BP 116/71
--- NOTE | 2020-10-20 04:38 | NUR ---
Up in the chair at HS. Requested sleep med ,steve given with good result. Slept well during the night. She requested tylenol for headache and neck pain when she woke up to use commode. Tolerated room air well with O2 sat in the low 90's. No respiratory distress. Progressing towards discharge goals.
[2020-10-20 07:03] VITALS: BP 125/70
[2020-10-20] MEDS ORDERED: ACETAMINOPHEN325 M1 PO (12:46)
[2020-10-20] MEDS ORDERED: IPRAT-ALBUT 0.5-3 ML INH (12:46)
[2020-10-20] MEDS ORDERED: VITAMIN B-1100 M2 PO (12:46)
[2020-10-20] MEDS ORDERED: ACEROLA C500 MG PO (12:46)
[2020-10-20] MEDS ORDERED: VITAMIN D325 MC1 PO (12:46)
[2020-10-20] MEDS ORDERED: MIRALAX17 GM PO (12:46)
[2020-10-20] MEDS ORDERED: PREDNISONE 20 M20 M1 PO (12:46)
[2020-10-20] MEDS ORDERED: ZINC SULFATE50 MG PO (12:46)
--- NOTE | 2020-10-20 13:02 | NUR ---
Assumed care of pt this am. Pt A&O x4, on RA. Discharging to [facility] around 1pm. IV & tele discontinued. Report given to Bhavani at [facility]. All belongings packed up and sent with pt.
--- NOTE | 2020-10-20 13:11 | NUR ---
DISCHARGE NOTE: SW received notification from [facility] that they received insurance auth and they can accept pt today. SW reviewed chart and spoke with nursing and attending physician. Pt is medically stable for discharge. [facility] arranged transportation for 1300. TITO spoke with pt via phone to provide update and notify of discharge plan. Pt is aware and in agreement with plan. SW also left voice message for pt's dtr, Saira, per pt's request. Chart copy requested. Nursing provided with number to call report. SW faxed d/c ppwk to [facility]. Notified liaison of discharge ppwk being faxed. No additional SW needs identified at this time, but is available to assist should needs arise.
== END 2020-10-20 13:02 | DRG 871 ==
LOC: ER 12:34 → 3W 13:52 → EROBS 13:52 → 3W 15:24
PROVIDERS: Emergency Medicine; Internal Medicine; Internal Medicine Pulmonary Disease; Pediatrics; Specialist; ADMIT Hospitalist; ATTEND Hospitalist
DX: A41.59 Other Gram-negative sepsis (principal); U07.1 COVID-19; J12.82 Pneumonia due to coronavirus disease 2019; J80 Acute respiratory distress syndrome; N17.0 Acute kidney failure with tubular necrosis; E44.0 Moderate protein-calorie malnutrition; Z68.41 Body mass index [BMI] 40.0-44.9, adult; I10 Essential (primary) hypertension; K52.9 Noninfective gastroenteritis and colitis, unspecified; F32.9 Major depressive disorder, single episode, unspecified; E66.9 Obesity, unspecified; E11.9 Type 2 diabetes mellitus without complications; R53.81 Other malaise; Z79.899 Other long term (current) drug therapy; Z88.0 Allergy status to penicillin
CPT/HCPCS: 10879